=== PATIENT | male | born 1955 | race Caucasian/White ===

== ENCOUNTER 2018-05-15 05:54 | Day surgery (SDC) | payer OTHER ==
[2018-05-15] MEDS ORDERED: SOD CHLORIDE 0.9% 1,000 ML IV (06:00)
[2018-05-15] MEDS: TROPICAMIDE 1% 3 ML OPH OPER (06:12)
[2018-05-15] MEDS: MOXIFLOXACIN 0.5% 3 ML OPH OPER (06:12)
[2018-05-15] MEDS: DICLOFENAC 0.1% 2.5 ML OPH OPER (06:12)
[2018-05-15] MEDS: CYCLOPENTOLATE/PHENYLEPH 2 ML OPH OPER (06:12)
[2018-05-15] MEDS ORDERED: TETRACAINE 0.5% 4 ML OPH (06:32)
[2018-05-15] MEDS ORDERED: GENTAMICIN 80 MG INJ (06:32)
[2018-05-15] MEDS ORDERED: LIDOCAINE 4% (MPF) 5 ML INJ (06:32)
[2018-05-15] MEDS: CEFAZOLIN 1 GM INJ (06:32)
[2018-05-15] MEDS: CARBACHOL 0.01% 1.5 ML OPH INJ (06:32)
[2018-05-15] MEDS ORDERED: MOXIFLOXACIN 0.5% 3 ML OPH (06:32)
[2018-05-15] MEDS ORDERED: EPINEPHrine 1 MG INJ (06:33)
[2018-05-15] MEDS: DEXAMETHASONE 4 MG/ML 1 ML INJ (06:33)
[2018-05-15] MEDS ORDERED: NA HYALURONATE/CHONDROITIN 0.5 ML SYG (06:33)
[2018-05-15] MEDS ORDERED: FENTAnyl 50 MCG/ML VIAL (07:00)
[2018-05-15 07:01] LABS: WHITE BLOOD COUNT 5.8 10^3/ul (4.8-10.8)
[2018-05-15 07:01] LABS: ADD MAN DIFF? NO; BASOPHIL # 0.1 10^3/ul (0.0-0.1); BASOPHILS % 0.9 % (0.0-2.0); EOSINOPHILS # 0.2 10^3/ul (0.0-0.5); EOSINOPHILS % 3.4 % (0.0-7.0); HEMATOCRIT 41.1 % (42.0-52.0); HEMOGLOBIN 13.5 g/dl (14.0-18.0); LYMPHOCYTES # 1.8 10^3/ul (0.8-2.9); LYMPHOCYTES % 31.6 % (15.0-51.0); MEAN CORPUSCULAR HEMOGLOBIN 29.3 pg (29.0-33.0); MEAN CORPUSCULAR HGB CONC 32.8 g/dl (32.0-37.0); MEAN CORPUSCULAR VOLUME 89.3 fl (82.0-101.0); MEAN PLATELET VOLUME 10.2 fl (7.4-10.4); MONOCYTE # 0.5 10^3/ul (0.3-0.9); MONOCYTES % 9.3 % (0.0-11.0); NEUTROPHIL # 3.2 10^3/ul (1.6-7.5); NEUTROPHILS % 54.6 % (39.0-77.0); PLATELET COUNT 298 10^3/UL (140-415); RED CELL DISTRIBUTION WIDTH 12.8 % (11.5-14.5)
[2018-05-15] MEDS ORDERED: PROPOFOL 20 ML (07:22)
[2018-05-15] MEDS ORDERED: LIDOCAINE 2% (SDV) 5 ML INJ (07:22)
[2018-05-15 07:24] LABS: ANION GAP 10 (5-13); BLOOD UREA NITROGEN 12 mg/dl (7-20); CARBON DIOXIDE 25 mmol/L (21-31); CHLORIDE 107 mmol/L (97-110); CREATININE 0.76 mg/dl (0.61-1.24); Estimated GFR > 60 mL/min (>60); GLUCOSE 103 mg/dl (70-220); POTASSIUM 4.2 mmol/L (3.5-5.1); SODIUM 142 mmol/L (135-144)
[2018-05-15 07:25] LABS: CALCIUM 8.2 mg/dl (8.4-10.2); INR 1.06; PROTIME 13.9 Sec (11.9-14.9); PT RATIO 1.1
[2018-05-15] MEDS ORDERED: DIPHENHYDRAMINE 50 MG INJ IV (07:30)
[2018-05-15] MEDS ORDERED: ALBUTEROL 0.083% (NEB) 2.5 MG/3 ML AMP HHN (07:30)
[2018-05-15] MEDS ORDERED: ACETAMINOPHEN 500 MG TAB PO (07:30)
[2018-05-15] MEDS ORDERED: hydrALAzine 20 MG INJ IV (07:30)
[2018-05-15] MEDS ORDERED: OXYCODONE/ACETAMINOPHEN (5/325) TAB PO (07:30)
[2018-05-15] MEDS ORDERED: LABETALOL HCL 20MG INJ IV (07:30)
[2018-05-15] MEDS ORDERED: ACETAMINOPHEN 325 MG TAB PO (07:30)
[2018-05-15] MEDS ORDERED: ONDANSETRON 4 MG INJ IV (07:30)
== END 2018-05-15 10:15 | disposition home or self-care (01) ==
LOC: SDS 05:54
DX: H25.042 Posterior subcapsular polar age-related cataract, left eye (principal); E78.00 Pure hypercholesterolemia, unspecified; E78.5 Hyperlipidemia, unspecified
CPT/HCPCS: 66984; 80048; 85025; 85610; 85730